=== PATIENT | female | born 2000 | race Hispanic/Latino ===

== ENCOUNTER 2018-06-20 16:12 | Inpatient (IN) | payer OTHER ==
[~2018-06-20] VITALS: Ht 162.6 cm; Wt 124.0 kg
--- NOTE | ~2018-06-20 | OR ---
[facility] [address] [place], [place] [address] Draft DATE OF OPERATION: 06/22/2018 SURGEON: Domo Nielson DO PREOPERATIVE DIAGNOSES: 1. Intrauterine at 40 weeks and 0 days gestation. 2. Failure to progress. 3. macrosomia. 4. Maternal obesity. 5. GBS positive status. POSTOPERATIVE DIAGNOSES: 1. Intrauterine at 40 weeks and 0 days gestation. 2. Failure to progress. 3. macrosomia. 4. Maternal obesity. 5. GBS positive status. PROCEDURE PERFORMED: Primary low transverse delivery. DROP FORGER: Bennie Stone MD. ANESTHESIA: Spinal. ESTIMATED BLOOD LOSS: 1000 mL. COMPLICATIONS: None. SPECIMENS: None. FINDINGS: Viable male weighing 11 pounds 2 ounces with Apgars of 8 and 9. Born in the ROP position. Normal uterus, tubes, and ovaries noted. There was a small nonexpanding hematoma on the inferior portion of the hysterotomy on the left that was hemostatic at PATIENT NAME: SWATHI NGO OPERATIVE REPORT DATE OF : [birth year] REPORT #: [id number] PHYSICIAN: DOMO NIELSON DO PCP: DOMO NIELSON DO REPORT IS CONFIDENTIAL AND NOT TO BE RELEASED WITHOUT AUTHORIZATION [facility] [address] [place] [id number] Draft the end of the procedure. INDICATIONS: Ms. Ngo is a pleasant 17-year-old G1, P0, female, who presented to Labor and delivery for induction of labor. is complicated by obesity and suspected macrosomia as well as GBS positive status. An ultrasound was performed in the 38th week of gestation with an estimated weight of 3885 g. The patient was admitted for cervical ripening, received several doses of Cytotec. A Cook catheter was then placed and the patient progressed to 4 cm. Artificial rupture of membranes and IUPC were placed. Contractions were noted to be inadequate and decision was made to augment with Pitocin. The patient did receive penicillin prophylaxis per protocol for GBS positive status. After several hours, the patient made no cervical change and requested a primary low transverse delivery. We reviewed risks, benefits, alternatives, and the patient understands and wishes to proceed with the procedure. The patient did also receive an epidural. TECHNIQUE: The patient was taken to the operating room, where a time-out was performed to confirm correct patient, correct procedure. Spinal anesthesia was adequately established. The patient was then prepped and draped in the supine position with a bump under the right hip. ICPs were on and running and the patient received Ancef 3 g as well as azithromycin 500 mg preoperatively. Raymond catheter had been inserted at the time of epidural anesthesia. A vaginal prep was performed. ICPs were on and running and no preoperative heparin was indicated. After confirming that the spinal anesthetic was adequate, a Pfannenstiel skin incision was made in the skin and carried down to the fascia. The fascia was nicked in the midline with a surgical scalpel and fascial incision was extended bilaterally using curved Oneal scissors. Fascia was grasped with Jovanni clamps, elevated, and the underlying rectus muscles divided bluntly and sharply. The rectus muscles were then divided in the midline bluntly and the peritoneum entered bluntly and peritoneal incision extended bilaterally using blunt dissection. Brandin self retractor was placed and the lower segment identified. Hysterotomy was performed using a surgical scalpel and hysterotomy was extended bilaterally using blunt dissection. Clear amniotic fluid was noted. Surgeon's hand was placed into the uterine cavity. The head was easily elevated into the abdomen, delivered with the assistance of fundal pressure. No nuchal cord was noted. The remainder of the delivered with the assistance of fundal pressure without difficulty. was vigorous and cried and the cord was doubly clamped and cut. Cord blood was obtained for routine analysis and a section of cord was also obtained. The placenta was then expressed intact with centrally inserted three-vessel cord. The uterus was cleared of any remaining products of conception and clot and Pitocin was given. The uterus was noted to be somewhat boggy and 60 units total of Pitocin were placed into the bag and bolused. The uterus firmed nicely. Hysterotomy was then repaired using 0 Vicryl in a PATIENT NAME: SWATHI NGO OPERATIVE REPORT DATE OF : [birth year] REPORT #: [id number] PHYSICIAN: DOMO NIELSON DO PCP: DOMO NIELSON DO REPORT IS CONFIDENTIAL AND NOT TO BE RELEASED WITHOUT AUTHORIZATION [facility] [address] [place], [place] [address] Draft running locked manner. A 2nd vertical imbricating stitch was applied. A hematoma was noted in the inferior portion of the hysterotomy on the left side. It was nonexpanding and an [place] stitch was placed without difficulty. A small amount of oozing was noted in the midline and this was made hemostatic with a baqaee-uy-ldbvi of 0 Vicryl. The remainder of the hysterotomy was made hemostatic with judicious use of Bovie electrocautery. The pelvis was irrigated and again the uterus was noted to be firm. The uterus, tubes, and ovaries were inspected, found to be normal. Again, hysterotomy was dry and the Brandin retractor was removed. Evicel was applied to the hysterotomy and ACell sheath was applied to the hysterotomy. The peritoneum was reapproximated using 2-0 Vicryl in a running nonlocked manner. The rectus muscles were examined and small oozing sites were made hemostatic with Bovie electrocautery. Rectus muscles were loosely approximated using 0 Vicryl and 3 loose interrupted sutures of 0 Vicryl. ACell powder was applied to the rectus sheath. The fascia was then reapproximated using 0 Vicryl in a running nonlocked manner. Subcu was irrigated and few oozing spots were made hemostatic with Bovie electrocautery. Subcu was then reapproximated using 2-0 Vicryl in a running nonlocked manner. Skin was reapproximated using surgical lexus. The uterus was Crede'd for a small amount of blood. The patient was then taken to PACU in good and stable condition with her . Sponge, needle, and instrument count was correct x2 at the end of the procedure. Dr. Stone was present and participated in all portions of procedure. DO NATHALIE Ho/YUNIOR /[id number] Copies: ~ PATIENT NAME: SWATHI NGO OPERATIVE REPORT DATE OF : [birth year] REPORT #: [id number] PHYSICIAN: DOMO NIELSON DO PCP: DOMO NIELSON DO REPORT IS CONFIDENTIAL AND NOT TO BE RELEASED WITHOUT AUTHORIZATION
[~2018-06-20 16:12] MED LIST: PRENATAL TABLE1 EAC1 PO
[2018-06-21] MEDS ORDERED: DHA100 MG PO (00:58)
--- NOTE | 2018-06-21 11:31 | PR ---
[facility] [address] [place], [place] [address] Signed Progress Notes IP Datetime Report Generated by LINWOOD: 06/21/2018 11:31 PROGRESS NOTES: [id number] Impression: Normal progression of labor; Reassuring heart rate Procedures: Sterile Vag Exam Other Procedures: Cook cath placement Plan: Cervical Ripening Other Informed Consents: Cook Cath VITAL SIGNS: [id number] Vital Signs: Reviewed; Within Normal Limits EXAM: [id number] Dilatation: 2.0 Effacement: 70 Station: -4 Uterine Contractions: continued irritablity MEMBRANES: [id number] Membrane Status: Intact Comments: Pt seen and examined. Cervix w/ unfavorable Bishops score. Discussed ctxs too frequent for additional doses of prostaglandin. Reviewed Cook cath and pt agrees to mechanical ripening. Cook cath placed per manufacture's recommendations w/out difficulty. RN to fill balloons to 80cc/balloon. Continue cervical ripening Fetus A: [id number] FHR Baseline: 145 Variability: Moderate 6-25bpm Accelerations: 15X15 Decelerations: None FHR Category: Category I Presentation: Vertex Comments on Fetus A: No evidence of metabolic acidosis Fetus B: [id number] Signing Physician: Domo Nielson DO Copies: ~ *Electronically Signed* 06/21/18 1137 DOMO NIELSON DO PATIENT NAME: SWATHI NGO PROGRESS NOTE DATE OF : 98 PHYSICIAN: DOMO NIELSON DO RPT #: [id number] REPORT IS CONFIDENTIAL AND NOT TO BE RELEASED WITHOUT AUTHORIZATION
--- NOTE | 2018-06-21 17:38 | PR ---
[facility] [address] [place], [place] [address] Signed Progress Notes IP Datetime Report Generated by LINWOOD: 06/21/2018 17:38 PROGRESS NOTES: [id number] Impression: Reassuring heart rate Procedures: Artificial ROM; Intrauterine Pressure Catheter; Sterile Vag Exam Other Procedures: Cook cath placement Plan: Continue present management Other Informed Consents: Cook Cath VITAL SIGNS: [id number] Vital Signs: Reviewed; Within Normal Limits EXAM: [id number] Dilatation: 4.0 Effacement: 50 Station: -3 Uterine Contractions: q5-6 minutes MEMBRANES: [id number] Membrane Status: Intact ROM Note: Reviewed AROM in detail and verbal consent obtained. vertex well applied to cervix and no other presenting parts appreciated. AROM then performed w/out difficulty for moderate amount of clear fluid. Mother and baby tolerated well. IUPC then placed w/out difficulty. Comments: Pt seen and examined. Doing well. Comfortable w/ epidural that was kindly placed by anesthesia. On SVE, Cook cath sitting in vagina past the cervix. This was deflated and removed. Cx 4/50 and head applied to cervix. AROM performed without difficulty as above. IUPC placed without difficulty. Will start PCN prophylaxis. Will monitor CTXs and cervical progress; may need to augment with pitocin as needed. Reviewed w/ pt and all questions answered. Fetus A: [id number] FHR Baseline: 140 Variability: Moderate 6-25bpm Accelerations: 15X15 Decelerations: None FHR Category: Category I Presentation: Vertex Comments on Fetus A: No evidence of metabolic acidosis Fetus B: [id number] Signing Physician: Domo Nielson DO *Electronically Signed* 06/21/181737 DOMO NIELSON DO PATIENT NAME: SWATHI NGO PROGRESS NOTE DATE OF : 98 PHYSICIAN: DOMO NIELSON DO RPT #: [id number] REPORT IS CONFIDENTIAL AND NOT TO BE RELEASED WITHOUT AUTHORIZATION [address] [facility] [place], [place] [address] Signed Copies: ~ *Electronically Signed* 06/21/181737 DOMO NIELSON DO PATIENT NAME: SWATHI NGO PROGRESS NOTE DATE OF : 98 PHYSICIAN: DOMO NIELSON DO RPT #: [id number] REPORT IS CONFIDENTIAL AND NOT TO BE RELEASED WITHOUT AUTHORIZATION
--- NOTE | 2018-06-21 22:11 | PR ---
[facility] [address] [place], [place] [address] Signed Progress Notes IP Datetime Report Generated by LINWOOD: 06/21/2018 22:11 PROGRESS NOTES: [id number] Impression: Reassuring heart rate; Slow Progression of Labor Procedures: Artificial ROM; Intrauterine Pressure Catheter; Sterile Vag Exam Other Procedures: Cook cath placement Plan: Continue present management; Augmentation Informed Consent Obtain: Vaginal Delivery; Section Delivery Other Informed Consents: Cook Cath VITAL SIGNS: [id number] Vital Signs: Reviewed; Within Normal Limits EXAM: [id number] Dilatation: 4.0 Effacement: 50 Station: -2 Uterine Contractions: q3-4, inadequate MEMBRANES: [id number] Membrane Status: Intact ROM Note: Reviewed AROM in detail and verbal consent obtained. vertex well applied to cervix and no other presenting parts appreciated. AROM then performed w/out difficulty for moderate amount of clear fluid. Mother and baby tolerated well. IUPC then placed w/out difficulty. Comments: Pt seen and evaluated. Painful w/ contractions. FHT reassuring. SVE deferred. Reviewed slow progress of labor and inadequate CTXs. Pitocin recently started per protocol to augment labor. Reviewed pitocin and anticipated course of labor. Will increase pit per protocol. Anesthesia to reevaluate patient. Limit SVE to reduce risk of chorioamnionitis. Reviewed plan of care w/ RN Fetus A: [id number] FHR Baseline: 145 Variability: Moderate 6-25bpm Accelerations: 15X15 Decelerations: None FHR Category: Category I Presentation: Vertex Comments on Fetus A: No evidence of metabolic acidosis Fetus B: [id number] Signing Physician: Doom Nielson DO *Electronically Signed* 06/21/182210 DOMO NIELSON DO PATIENT NAME: SWTAHI NGO PROGRESS NOTE DATE OF : 98 PHYSICIAN: DOMO NIELSON DO RPT #: [id number] REPORT IS CONFIDENTIAL AND NOT TO BE RELEASED WITHOUT AUTHORIZATION [address] [place], [place] [address] Signed Copies: ~ *Electronically Signed* 06/21/182210 DOMO NIELSON DO PATIENT NAME: SWATHI NGO PROGRESS NOTE DATE OF : 98 PHYSICIAN: DOMO NIELSON DO RPT #: [id number] REPORT IS CONFIDENTIAL AND NOT TO BE RELEASED WITHOUT AUTHORIZATION
--- NOTE | 2018-06-21 23:29 | PR ---
[facility] [address] [place], [place] [address] Signed Progress Notes IP Datetime Report Generated by LINWOOD: 06/21/2018 23:29 PROGRESS NOTES: [id number] Impression: Reassuring heart rate; Slow Progression of Labor Procedures: Artificial ROM; Intrauterine Pressure Catheter; Sterile Vag Exam Other Procedures: Cook cath placement Plan: Continue present management; Anesthesia consult Informed Consent Obtain: Vaginal Delivery; Section Delivery Other Informed Consents: Cook Cath VITAL SIGNS: [id number] Vital Signs: Reviewed VS Notable Details: Last systolic 140 w/ painful ctxs EXAM: [id number] Dilatation: 4.0 Effacement: 80 Station: -2 Uterine Contractions: q3-4, inadequate MEMBRANES: [id number] Membrane Status: Intact ROM Note: Reviewed AROM in detail and verbal consent obtained. vertex well applied to cervix and no other presenting parts appreciated. AROM then performed w/out difficulty for moderate amount of clear fluid. Mother and baby tolerated well. IUPC then placed w/out difficulty. Comments: Pt seen and evaluated. Anesthesia @ bedside for pain relief. Epidural not controlling pain but seems to be in proper place. CTXs still inadequate. Anesthesia will give epidural bolus. Will add phenergan 25mg IV x 1 dose. Monitor for cervical change. Reviewed plan of care w/ pt and all questions answered. Fetus A: [id number] FHR Baseline: 150 Variability: Moderate 6-25bpm Accelerations: 15X15 Decelerations: None FHR Category: Category I Presentation: Vertex Comments on Fetus A: No evidence of metabolic acidosis Fetus B: [id number] Signing Physician: Domo Nielson DO *Electronically Signed* 06/21/182328 DOMO NIELSON DO PATIENT NAME: SWATHI NGO PROGRESS NOTE DATE OF : 98 PHYSICIAN: DOMO NIELSON DO RPT #: [id number] REPORT IS CONFIDENTIAL AND NOT TO BE RELEASED WITHOUT AUTHORIZATION [address] [place], [place] [address] Signed Copies: ~ *Electronically Signed* 06/21/182328 DOMO NIELSON DO PATIENT NAME: SWATHI NGO PROGRESS NOTE DATE OF : 98 PHYSICIAN: DOMO NIELSON DO RPT #: [id number] REPORT IS CONFIDENTIAL AND NOT TO BE RELEASED WITHOUT AUTHORIZATION
--- NOTE | 2018-06-22 01:16 | PR ---
[facility] [address] [place], [place] [address] Signed Progress Notes IP Datetime Report Generated by LINWOOD: 06/22/2018 01:16 PROGRESS NOTES: [id number] Impression: Reassuring heart rate; Slow Progression of Labor Procedures: Artificial ROM; Intrauterine Pressure Catheter; Sterile Vag Exam Other Procedures: Cook cath placement Plan: Deliver- Section Informed Consent Obtain: Section Delivery; Risks, Benefits and Alternatives Discussed Other Informed Consents: Cook Cath VITAL SIGNS: [id number] Vital Signs: Reviewed VS Notable Details: Last systolic 140 w/ painful ctxs EXAM: [id number] Dilatation: 4.0 Effacement: 80 Station: -3 Uterine Contractions: q 3 minutes, adequate MEMBRANES: [id number] Membrane Status: Intact ROM Note: Reviewed AROM in detail and verbal consent obtained. vertex well applied to cervix and no other presenting parts appreciated. AROM then performed w/out difficulty for moderate amount of clear fluid. Mother and baby tolerated well. IUPC then placed w/out difficulty. Comments: Pt seen and evaluated. Requesting primary C/S stating that "the pain is too much" and she is not wanting to continue with trial of labor. Reviewed FHT reassuring, contractions just becoming adequate, and that continuing with trial of labor is my recommendation. Pt and state they "100% want a ." Reviewed prior conversations regarding delivery including risks/benefits/alternatives. Risks include but are not limited to infection, bleeding, injury to surrouding tissue, and risks to future . Pt understands and wishes to proceed. Pitocin discontinued. Anesthesia and OR crew notified and en route. Will plan Ancef 3 g and azithromycin 500mg IV for preop abx. Consents signed. Fetus A: [id number] FHR Baseline: 150 Variability: Moderate 6-25bpm Accelerations: 15X15 Decelerations: None FHR Category: Category I *Electronically Signed* 06/22/18115 DOMO NIELSON DO PATIENT NAME: SWATHI NGO PROGRESS NOTE DATE OF : 98 PHYSICIAN: DOMO NIELSON DO RPT #: [id number] REPORT IS CONFIDENTIAL AND NOT TO BE RELEASED WITHOUT AUTHORIZATION [facility] [address] [facility] [place], [place] [address] Signed Presentation: Vertex Comments on Fetus A: No evidence of metabolic acidosis Fetus B: [id number] Signing Physician: Domo Nielson DO Copies: ~ *Electronically Signed* 06/22/18115 DOMO NIELSON DO PATIENT NAME: SWATHI NGO PROGRESS NOTE DATE OF : 98 PHYSICIAN: DOMO NIELSON DO RPT #: [id number] REPORT IS CONFIDENTIAL AND NOT TO BE RELEASED WITHOUT AUTHORIZATION
--- NOTE | 2018-06-22 03:09 | NUR ---
06/22/18 0309 Alexandria Rizvi 0254 PT ARRIVED TO ROOM 105 AND VSS AND PT RESTING IN BED, AWAKE OFF AND ON AND DENIES PAIN AND NAUSEA. RESP EVEN AND UNLABORED. 0307 PT EDUCATION GIVEN ON FUNDAL CHECK AND QUESTIONS ANSWERED.
--- NOTE | 2018-06-22 11:45 | PR ---
[facility] [address] [place], [place] [address] Signed PP Progress Notes Datetime Report Generated by CPN: 06/22/2018 11:45 SUBJECTIVE: [id number] Pain: Within normal limits Nausea/Vomiting: Denies Flatus: No Bowel Movement: No Vital Signs: [id number] Vital Signs: Reviewed; Within Normal Limits EXAM: [id number] Cardiovascular: Normal Respiratory: Normal Abdomen/Uterus: Normal Lochia: Normal Vulva/Perineum: Not Done Breasts: Not Done CVA Tenderness: Normal Extremities: Normal Incision: Normal Progress: Not Applicable Exam Comments: Fundus firm U-2 nontender. Incision healing nicely IMPRESSION/PLAN/PROCEDURES: [id number] Impression: Normal progression Plan: Continue present management Progress Notes: Pt seen and examined. Doing well. Tolerating full diet. Gonzales cath still in place. Pt has not yet ambulated. Good urine output. Vitals normal. Pain and lochia minimal. in nursury with difficult time w/ blood glucose secondary to macrosomia. Plan to help pt w/ breast pump today. Continue routine pp care; pt to ambulate and discontinue gonzales when able. All questions answered. Signing Physician: Domo Nielson DO Copies: ~ *Electronically Signed* 06/22/18 1145 DOMO NIELSON DO PATIENT NAME: SWATHI NGO PROGRESS NOTE DATE OF : 98 PHYSICIAN: DOMO NIELSON DO RPT #: [id number] REPORT IS CONFIDENTIAL AND NOT TO BE RELEASED WITHOUT AUTHORIZATION
--- NOTE | 2018-06-23 14:31 | PR ---
[facility] [address] [place], [place] [address] Signed PP Progress Notes Datetime Report Generated by CPN: 06/23/2018 14:31 SUBJECTIVE: [id number] Pain: Within normal limits Nausea/Vomiting: Denies Flatus: Yes Bowel Movement: No Vital Signs: [id number] Vital Signs: Reviewed; Within Normal Limits EXAM: [id number] Cardiovascular: Normal Respiratory: Normal Abdomen/Uterus: Normal Lochia: Normal Vulva/Perineum: Not Done Breasts: Not Done CVA Tenderness: Normal Extremities: Normal Incision: Normal Progress: Normal Exam Comments: Fundus firm U-2 nontender. Incision well healing IMPRESSION/PLAN/PROCEDURES: [id number] Impression: Normal progression Plan: Continue present management Other Plans: Increase ambulation Progress Notes: Pt seen and examined. Voiding and tolerating full diet, but rarely ambulating. Pain and lochia minimal. No fevers/chills/discharge or other concerns. in nursury being closely but is weaning off D10. Anticipate d/c mother to border status tomorrow. All questions answered. Increase ambulation today. Signing Physician: Domo Nielson DO Copies: ~ *Electronically Signed* 06/23/18 1431 DOMO NIELSON DO PATIENT NAME: SWATHI NGO PROGRESS NOTE DATE OF : 98 PHYSICIAN: DOMO NIELSON #: [id number] REPORT IS CONFIDENTIAL AND NOT TO BE RELEASED WITHOUT AUTHORIZATION
--- NOTE | 2018-06-24 15:58 | PR ---
[facility] [address] [facility] [place], [place] [address] Signed PP Progress Notes Datetime Report Generated by CPN: 06/24/2018 15:57 SUBJECTIVE: [id number] Pain: Within normal limits Nausea/Vomiting: Denies Flatus: Yes Bowel Movement: Yes Vital Signs: [id number] Vital Signs: Reviewed EXAM: [id number] Cardiovascular: Normal Respiratory: Normal Abdomen/Uterus: Normal Lochia: Normal Vulva/Perineum: Not Done Breasts: Not Done CVA Tenderness: Normal Extremities: Normal Incision: Normal Progress: Normal Exam Comments: Fundus firm U-2 nontender. Incision healing well. IMPRESSION/PLAN/PROCEDURES: [id number] Impression: Normal progression Plan: Discharge Other Plans: Increase ambulation Progress Notes: Pt seen and examined. Doing well. Ambulating, voiding, and tolerating full diet. Pain and lochia minimal. Breast feeding well. No fevers/chills/discharge. Ready for discharge home today. Signing Physician: Domo Nielson DO Copies: ~ *Electronically Signed* 06/24/18 1557 DOMO NIELSON DO PATIENT NAME: SWATHI NGO PROGRESS NOTE DATE OF : 98 PHYSICIAN: DOMO NIELSON DO RPT #: [id number] REPORT IS CONFIDENTIAL AND NOT TO BE RELEASED WITHOUT AUTHORIZATION
== END 2018-06-24 17:30 | disposition home or self-care (01) | DRG 787 ==
LOC: FBC 06-21 00:01 → MS 06-22 18:30 → FBC 06-22 18:43
PROVIDERS: ADMIT Obstetrics & Gynecology
PROC: 10H07YZ Insertion of Other Device into Products of Conception, Via Natural or Artificial Opening (ICD-10-PCS; 2018-06-21)
PROC: 10907ZC Drainage of Amniotic Fluid, Therapeutic from Products of Conception, Via Natural or Artificial Opening (ICD-10-PCS; 2018-06-21)
PROC: 0U7C7ZZ Dilation of Cervix, Via Natural or Artificial Opening (ICD-10-PCS; 2018-06-21)
PROC: 00HU33Z Insertion of Infusion Device into Spinal Canal, Percutaneous Approach (ICD-10-PCS; 2018-06-21)
PROC: 3E0R3BZ Introduction of Anesthetic Agent into Spinal Canal, Percutaneous Approach (ICD-10-PCS; 2018-06-21)
PROC: 3E0P7VZ Introduction of Hormone into Female Reproductive, Via Natural or Artificial Opening (ICD-10-PCS; 2018-06-21)
PROC: 10D00Z1 Extraction of Products of Conception, Low, Open Approach (ICD-10-PCS; principal; 2018-06-22 01:40)
DX: O36.63X0 Maternal care for excessive fetal growth, third trimester, not applicable or unspecified (principal); D62 Acute posthemorrhagic anemia; O62.0 Primary inadequate contractions; Z3A.40 40 weeks gestation of pregnancy; Z37.0 Single live birth; O99.214 Obesity complicating childbirth; E66.9 Obesity, unspecified; O99.824 Streptococcus B carrier state complicating childbirth; Z88.5 Allergy status to narcotic agent; O99.02 Anemia complicating childbirth
CPT/HCPCS: 01961; 36415; 85027; J0690; J1100; J1650; J1885; J2274; J2405; J2540; J2550; J2590; J7060; J7120